=== PATIENT | female | born 1985 | race Caucasian/White ===

== ENCOUNTER 2024-05-22 12:18 | Emergency (ER) | payer OTHER, SELFPAY ==
--- NOTE | ~2024-05-22 | XR_ITS ---
XR chest 2V Ordering provider: Socorro Mitchell PA-C History: 38 years Female with . cough, FEVER X3DAYS . Comparison: None. FINDINGS: MEDIASTINUM: The cardiac silhouette is slightly enlarged. LUNGS: No effusions or pneumothorax. Opacification the right lower lobe suggestive of atelectasis carlyn loren pneumonia. OTHER: No free air under the diaphragm. IMPRESSION: Right basal pneumonia. Reviewed, dictated and finalized at location A. IMPRESSION: Right basal pneumonia.
[2024-05-22 12:23] VITALS: BP 144/109; PULSE 105; RESP 20; TEMP 37.3; O2SAT 99
[2024-05-22 14:36] VITALS: BP 149/100; PULSE 102; RESP 18; O2SAT 96
[2024-05-22 16:40] VITALS: BP 155/98; PULSE 106; RESP 20; TEMP 38.3; O2SAT 97
--- NOTE | 2024-05-22 16:44 | ED.NAVMDI ---
HPI - Nausea/Vomiting/Diarrhea General Chief complaint: Nausea/Vomiting/Diarrhea <Socorro Mitchell PA-C - Last Filed: 05/22/24 16:44> Stated complaint: fever and cough X4 days <Socorro Mitchell PA-C - Last Filed: 05/22/24 16:44> Time Seen by Provider: 05/22/24 17:31 <Socorro Mitchell PA-C - Last Filed: 05/22/24 16:44> Focused HPI: 38-year-old female presents to emergency department for body aches and fever for 4 days. Patient is reporting a sore throat, productive cough, body aches. She denies chest pain or shortness of breath, abdominal pain, vomiting or diarrhea. She is reporting associated nausea. History of hysterectomy. GENERAL: Ill appearing, well-nourished, and in no acute distress. HEAD: Normocephalic, atraumatic. CHEST: Clear to auscultation. ?No respiratory distress. HEART: Tachycardia with regular rhythm NEURO: ?Alert and oriented x3. Patient screened in triage and initial orders placed.? ?Additional care and disposition to be based upon?diagnostic testing and treatment. <Socorro Mitchell PA-C - Last Filed: 05/22/24 16:44> History of Present Illness HPI Narrative: patient is a 38-year-old female who presents emergency department with chief complaint of cough and body aches. The patient reports that her kids have been sick recently the patient reports last 4 days subtle bit of a sore throat nonproductive cough. Patient reports she feels very extremely dry reports he has had some nausea with this as well. <Vimal Yusuf MD - Last Filed: 05/22/24 18:52> Related Data Allergies/Adverse reactions: Allergies Allergy/AdvReac Type Severity Reaction Status Date / Time No Known Allergies Allergy Verified 05/22/24 12:18 <Socorro Mitchell PA-C - Last Filed: 05/22/24 16:44> Review of Systems Review of Systems: A 10 system review of systems was completed on the patient and is negative except for what is stated in the HPI. Nursing and ancillary documentation was reviewed. <Vimal Yusuf MD - Last Filed: 05/22/24 18:52> Exam Narrative: GENERAL: Well-appearing, well-nourished, and in no acute distress. HEAD: Normocephalic, atraumatic. EYES: PERRLA and EOMI. ENT: Nares clear, no rhinorrhea or epistaxis. Mucous membranes dry. NECK: Supple. CHEST: Scattered rhonchi to auscultation. No respiratory distress. HEART: Regular rate and rhythm. No murmur heard. Normal peripheral pulses. ABDOMEN: Soft, nontender, nondistended, normal active bowel sounds. EXTREMITIES: Normal range of motion. No edema. SKIN: Warm, dry, no rash. NEURO: No focal deficits. Alert and oriented x3. PSYCH: Normal mood and affect. <Vimal Yusuf MD - Last Filed: 05/22/24 18:52> Course Vital Signs Vital signs: Vital Signs Temperature 37.3 C 05/22/24 12:23 Pulse Rate 105 H 05/22/24 12:23 Respiratory Rate 05/22/24 12:23 Blood Pressure 144/109 H 05/22/24 12:23 Pulse Oximetry 99 05/22/24 12:23 Oxygen Delivery Room Air 05/22/24 12:23 Temperature 38.3 C H 05/22/24 16:40 Pulse Rate 106 H 05/22/24 16:40 Respiratory Rate 05/22/24 16:40 Blood Pressure 155/98 H 05/22/24 16:40 Pulse Oximetry 97 05/22/24 16:40 Oxygen Delivery Room Air 05/22/24 12:23 <Socorro Mitchell PA-C - Last Filed: 05/22/24 16:44> Vital Signs Temperature 37.3 C 05/22/24 12:23 Pulse Rate 105 H 05/22/24 12:23 Respiratory Rate 05/22/24 12:23 Blood Pressure 144/109 H 05/22/24 12:23 Pulse Oximetry 99 05/22/24 12:23 Oxygen Delivery Room Air 05/22/24 12:23 Temperature 38.3 C H 05/22/24 16:40 Pulse Rate 106 H 05/22/24 16:40 Respiratory Rate 05/22/24 16:40 Blood Pressure 155/98 H 05/22/24 16:40 Pulse Oximetry 97 05/22/24 16:40 Oxygen Delivery Room Air 05/22/24 12:23 <Vimal Yusuf MD - Last Filed: 05/22/24 18:52> MDM - Nausea/Vomiting/Diarrhea MDM Narrative Medical decision m
[2024-05-22] MEDS: ACETAMINOPHEN 500 MG TABLET 1000 MG PO (16:49)
[2024-05-22 16:55] LABS: Basophils Absolute Auto 0.1 K/mm3 (0.0-0.1); Basophils Percent Auto 0.5 % (0.2-1.2); Eosinophils Percent Auto 0.1 % (0-4.4); Hematocrit 41.1 % (37.0-47.0); Hemoglobin 14.2 g/dL (12.0-15.0); Immature Granulocyte Absolute 0.03 K/mm3 (0.00-0.031); Immature Granulocyte Percent A 0.3 % (0-0.5); Lymphocytes Absolute Auto 1.16 K/mm3 (0.9-3.2); Lymphocytes Percent Auto 9.8 % (18.3-44.2); Mean Corpuscular HGB Conc 34.5 g/dl (32-36); Mean Corpuscular Hemoglobin 28.5 pg (26-34); Mean Corpuscular Volume 82.5 fl (80-100); Monocytes Absolute Auto 1.7 K/mm3 (0.1-0.6); Monocytes Percent Auto 14.6 % (2.6-8.5); Neutrophils Absolute Auto 8.9 K/mm3 (1.3-6.7); Neutrophils Percent Auto 74.7 % (45.5-73.1); Platelet Count Result 233 k/mm3 (150-375); Red Blood Count 4.98 M/mm3 (4.2-5.4); Red Cell Distribution Width 12.3 % (11.5-14.5); White Blood Count 11.9 K/mm3 (4.5-10.0)
[2024-05-22 17:05] LABS: Anion Gap 14 mmol/L (4-12); Blood Urea Nitrogen 5 mg/dL (7-17); Carbon Dioxide 21 mmol/L (22-30); Chloride 101 mmol/L (98-107); Estimated CRCL calculation 138 ml/min; Estimated Glomerular Filt Rate > 60; Glucose 120 mg/dL (65-110); Potassium 3.7 mmol/L (3.4-5.0); Sodium 136 mmol/L (137-145)
[2024-05-22 17:19] LABS: Strep Group A RT-PCR NOT DETECTED (Negative)
--- NOTE | 2024-05-22 17:39 | ED.GENADULT ---
HPI - General Adult General Chief complaint: Nausea/Vomiting/Diarrhea Stated complaint: fever and cough X4 days Time Seen by Provider: 05/22/24 17:31 Related Data Allergies Allergy/AdvReac Type Severity Reaction Status Date / Time No Known Allergies Allergy Verified 05/22/24 12:18 Course Vital Signs Vital signs: Vital Signs Temperature 37.3 C 05/22/24 12:23 Pulse Rate 105 H 05/22/24 12:23 Respiratory Rate 05/22/24 12:23 Blood Pressure 144/109 H 05/22/24 12:23 Pulse Oximetry 99 05/22/24 12:23 Oxygen Delivery Room Air 05/22/24 12:23 Temperature 38.3 C H 05/22/24 16:40 Pulse Rate 106 H 05/22/24 16:40 Respiratory Rate 05/22/24 16:40 Blood Pressure 155/98 H 05/22/24 16:40 Pulse Oximetry 97 05/22/24 16:40 Oxygen Delivery Room Air 05/22/24 12:23 Medical Decision Making Vital Signs Vital Signs: Vital Signs Temperature 37.3 C 05/22/24 12:23 Pulse Rate 105 H 05/22/24 12:23 Respiratory Rate 05/22/24 12:23 Blood Pressure 144/109 H 05/22/24 12:23 Pulse Oximetry 99 05/22/24 12:23 Oxygen Delivery Room Air 05/22/24 12:23 Temperature 38.3 C H 05/22/24 16:40 Pulse Rate 106 H 05/22/24 16:40 Respiratory Rate 05/22/24 16:40 Blood Pressure 155/98 H 05/22/24 16:40 Pulse Oximetry 97 05/22/24 16:40 Oxygen Delivery Room Air 05/22/24 12:23 Lab Data 05/22/24 16:49 05/22/24 16:49 Labs: Lab Results 05/22/24 Range/Units 16:49 WBC 11.9 H (4.5-10.0) K/mm3 RBC 4.98 (4.2-5.4) M/mm3 Hgb 14.2 (12.0-15.0) g/dL Hct 41.1 (37.0-47.0) % MCV 82.5 (80-100) fl MCH 28.5 (26-34) pg MCHC 34.5 (32-36) g/dl RDW 12.3 (11.5-14.5) % Plt Count 233 (150-375) k/mm3 MPV 11.0 H (7.4-10.4) fl Immature Gran % (Auto) 0.3 (0-0.5) % Neut % (Auto) 74.7 H (45.5-73.1) % Lymph % (Auto) 9.8 L (18.3-44.2) % Owen % (Auto) 14.6 H (2.6-8.5) % Eos % (Auto) 0.1 (0-4.4) % Baso % (Auto) 0.5 (0.2-1.2) % Lymph # (Auto) 1.16 (0.9-3.2) K/mm3 Owen # (Auto) 1.7 H (0.1-0.6) K/mm3 Eos # (Auto) 0.0 (0-0.3) K/mm3 Baso # (Auto) 0.1 (0.0-0.1) K/mm3 Abs Immat Gran (auto) 0.03 (0.00-0.031) K/mm3 Absolute Neuts (auto) 8.9 H (1.3-6.7) K/mm3 Absolute Nucleated RBC 0.000 (0.0-0.012) K/mm3 Nucleated RBC % 0.0 (0.0-0.2) % Sodium 136 L (137-145) mmol/L Potassium 3.7 (3.4-5.0) mmol/L Chloride 101 (98-107) mmol/L Carbon Dioxide 21 L (22-30) mmol/L Anion Gap 14 H (4-12) mmol/L BUN 5 L (7-17) mg/dL Creatinine 0.60 L (0.7-1.0) mg/dL Estim Creat Clear Calc 138 ml/min Estimated GFR > 60 (59 - ) Glucose 120 H (65-110) mg/dL Calcium 9.0 (8.4-10.2) mg/dL Group A Strep (PCR) Not detected (Negative) Discharge Plan Discharge Follow-up/Referrals: PHYSICIAN,[employer]INEER [Primary Care Provider] -
[2024-05-22] MEDS: ONDANSETRON INJ 4 MG/2 ML VIAL IV PUSH (18:08)
[2024-05-22] MEDS: AZITHROMYCIN 250 MG TABLET 500 MG PO (18:11)
[2024-05-22] MEDS: SODIUM CHLORIDE 0.9% IV 1,000 ML 999 ML IV CONT (18:12)
[2024-05-22] MEDS: BENZONATATE 100 MG CAPSULE 200 MG PO (18:13)
== END 2024-05-22 19:15 | disposition home or self-care (01) ==
PROVIDERS: Physician Assistant; Emergency Provider Emergency Medicine
DX: J18.9 Pneumonia, unspecified organism (principal)
CPT/HCPCS: 36415; 71046; 80048; 85025; 87651; 96361; 96365; 96375; 99284; A9270; J0696; J2405; J7030